=== PATIENT | female | born 1955 | race Caucasian/White ===

== ENCOUNTER 2016-07-17 21:17 | Emergency (ER) | payer SELFPAY ==
[~2016-07-17] VITALS: Ht 165.1 cm; Wt 76.8 kg
[2016-07-18] MEDS ORDERED: CIPRODEX OTIC7.5 ML RIGHT EAR (01:03)
== END 2016-07-18 01:14 | disposition home or self-care (01) ==
LOC: EXP 21:17 → EME 21:17 → EXP 07-18 01:14
DX: H66.91 Otitis media, unspecified, right ear (principal)
CPT/HCPCS: 99281; 99283